=== PATIENT | male | born 1965 | race Caucasian/White ===

== ENCOUNTER → 2017-06-30 | Outpatient (CLI) | payer BC ==
[~2017-06-30] MED LIST: NS 25 ML IV 50 ML IV ONE
--- NOTE | 2017-07-01 16:44 | CT ---
HISTORY: Weight loss, diarrhea Study: CT abdomen and pelvis with contrast Comparison: None Technique: Multiple axial images of the abdomen and pelvis were obtained from the lung bases to the pubic symphy sis with the administration of IV contrast. Dose reduction techniques including automated exposure c ontrol (AEC) and adjustment of mA and kV were utilized. Findings: Minimal atelectasis and/or scarring are noted within the visualized lungs. There is questionable foca l fatty sparing near the junction of the right and left hepatic lobes. The spleen, pancreas, adrenals , and right kidney are unremarkable in appearance. A subcentimeter low-attenuation focus within the l eft kidney is too small to accurately characterize. No CT evidence of hydronephrosis is identified. T he appendix is grossly unremarkable. Scattered diverticula are seen within the distal descending and sigmoid colon. There is questionable mild wall thickening of the sigmoid colon as well. Mild pericolo sona mesenteric fat stranding is seen adjacent to the sigmoid colon. Early/mild diverticulitis/colitis or other process cannot entirely be excluded. Recommend clinical correlation and continued follow-up is indicated further evaluation. IMPRESSION: 1. Diverticulosis with questionable early/mild diverticulitis/colitis as noted above. Correlate clin ically. Reported By:
== END | disposition home or self-care (01) ==
LOC: RAD 09:17
PROVIDERS: ATTEND Internal Medicine
DX: R63.4 Abnormal weight loss (principal); R19.7 Diarrhea, unspecified; K57.90 Diverticulosis of intestine, part unspecified, without perforation or abscess without bleeding
CPT/HCPCS: 74177; A4222

== ENCOUNTER 2017-09-25 11:05 | Day surgery (SDC) | payer BC ==
[2017-09-25] MEDS ORDERED: NS 1000 ML 1,000 ML ONE (11:42)
[2017-09-25] MEDS ORDERED: DIPRIVAN VIAL 20 ML ONE (13:12)
[2017-09-25 13:49] VITALS: BP 125/69
== END 2017-09-25 13:51 | disposition home or self-care (01) ==
LOC: SURG1 11:05
PROVIDERS: ATTEND Internal Medicine Gastroenterology
PROC: 0DBE8ZX Excision of Large Intestine, Via Natural or Artificial Opening Endoscopic, Diagnostic (ICD-10-PCS; principal; 2017-09-25 15:45)
PROC: 0DBP8ZX Excision of Rectum, Via Natural or Artificial Opening Endoscopic, Diagnostic (ICD-10-PCS; principal; 2017-09-25 15:45)
PROC: 0DJD8ZZ Inspection of Lower Intestinal Tract, Via Natural or Artificial Opening Endoscopic (ICD-10-PCS; principal; 2017-09-25 15:45)
PROC: 0DBL8ZX Excision of Transverse Colon, Via Natural or Artificial Opening Endoscopic, Diagnostic (ICD-10-PCS; principal; 2017-09-25 15:45)
DX: K92.1 Melena (principal); R19.4 Change in bowel habit; R10.84 Generalized abdominal pain; Z87.19 Personal history of other diseases of the digestive system; K64.0 First degree hemorrhoids; K57.30 Diverticulosis of large intestine without perforation or abscess without bleeding; K52.89 Other specified noninfective gastroenteritis and colitis; K62.89 Other specified diseases of anus and rectum
CPT/HCPCS: 87045; 87493; 87899; A4217; J3490

== ENCOUNTER → 2017-10-14 | Outpatient (CLI) | payer BC ==
[2017-09-25 13:49] VITALS: BP 125/69
[2017-10-14 15:34] LABS: BASOPHILS # (AUTO) 0.1 X10^3/uL (0.0-0.1); EOSINOPHILS # (AUTO) 0.1 x10^3/uL (0.0-0.2); EOSINOPHILS % (AUTO) 1.5 % (0.9-2.9); HEMATOCRIT 42.1 % (42.0-54.0); HEMOGLOBIN 14.5 g/dL (13.5-18.0); LYMPHOCYTES # (AUTO) 1.4 X10^3/uL (1.3-2.9); LYMPHOCYTES % (AUTO) 24.1 % (21.0-51.0); MEAN CORPUSCULAR HEMOGLOBIN 29.1 pg (27.0-34.0); MEAN CORPUSCULAR HGB CONC 34.5 g/dL (33.0-35.0); MEAN CORPUSCULAR VOLUME 84.2 fL (80.0-100.0); MEAN PLATELET VOLUME 7.9 fL (7.4-11.0); MONOCYTES # (AUTO) 0.4 x10^3/uL (0.3-0.8); MONOCYTES % (AUTO) 7.5 % (0.0-13.0); NEUTROPHILS # (AUTO) 3.8 x10^3/uL (2.2-4.8); NEUTROPHILS % (AUTO) 65.9 % (42.0-75.0); PLATELET COUNT 216 X10^3/uL (150.0-450.0); RED BLOOD COUNT 4.99 X10^6/uL (4.7-6.0); RED CELL DISTRIBUTION WIDTH 14.2 % (11.6-16.5); WHITE BLOOD COUNT 5.7 X10^3/uL (3.6-10.0)
[2017-10-14 15:42] LABS: ALANINE AMINOTRANSFERASE 26 Units/L (12-78); ALBUMIN 3.3 g/dL (3.4-5.0); ALKALINE PHOSPHATASE 68 Units/L (46-116); ASPARTATE AMINO TRANSFERASE 15 Units/L (15-37); BLOOD UREA NITROGEN 16 mg/dL (7-18); CALCIUM 8.9 mg/dL (8.5-10.1); CARBON DIOXIDE 27.8 mmol/L (21-32); CHLORIDE 105 mmol/L (98-107); COR CA(FOR HYPOALB) 9.5 mg/dL (8.5-10.1); COR NA(FOR HYPERGLY) 142 mmol/L (136-145); CREATININE 1.16 mg/dL (0.70-1.30); SODIUM 141 mmol/L (136-145); TOTAL PROTEIN 6.8 g/dL (6.4-8.2); eGFR BLACK RACES > 60 (>60); eGFR NON BLACK RACES > 60 (>60)
[2017-10-14 16:14] LABS: ERYTHROCYTE SEDIMENTATION RATE 7 MM/HOUR (0-15)
== END ==
LOC: LAB 15:17
PROVIDERS: ATTEND Internal Medicine Gastroenterology
DX: K51.80 Other ulcerative colitis without complications (principal)
CPT/HCPCS: 36415; 80053; 85025; 85652

== ENCOUNTER → 2017-11-30 | Outpatient (CLI) | payer BC ==
[2017-11-30 12:44] LABS: STOOL FOR WBC POSITIVE (NEGATIVE)
[2017-11-30 13:26] LABS: CRYPTOSPORIDIUM PARVUM ANTIGEN NEGATIVE (NEGATIVE); GIARDIA LAMBLIA ANTIGEN NEGATIVE (NEGATIVE)
== END | disposition home or self-care (01) | DRG 373 ==
LOC: LAB 12:04
PROVIDERS: ATTEND Internal Medicine Gastroenterology
DX: A04.71 Enterocolitis due to Clostridium difficile, recurrent (principal); B96.89 Other specified bacterial agents as the cause of diseases classified elsewhere
CPT/HCPCS: 82274; 82705; 83630; 87045; 87328; 87329; 87336; 87427; 87449; 87493

== ENCOUNTER → 2018-02-02 | Outpatient (CLI) | payer BC ==
[~2018-02-02] MED LIST changes: +NS 100 ML IV 100 ML IV ONE; -NS 25 ML IV 50 ML IV ONE
--- NOTE | 2018-02-02 12:38 | CT ---
History: Cough for 9 months Study: CT chest with contrast Findings: [address] imaging through the chest is performed during the intravenous administratio n of 100 mL of Omnipaque 350. Coronal and sagittal reformatted images are submitted as well. No media stinal or hilar mass or adenopathy is identified. The thoracic aorta is normal in caliber with no toby dence of dissection. Lungs are clear and there are no pleural effusions. Visualized upper abdominal s tructures appear unremarkable. There are mild to moderate spondylitic changes of the thoracic spine. Impression: Normal CT of the chest. Reported By:
== END ==
LOC: RAD 09:50
PROVIDERS: ATTEND Internal Medicine
DX: R05 Cough (principal)
CPT/HCPCS: 71260; A4222